=== PATIENT | female | born 1995 | race Caucasian/White ===

== ENCOUNTER 2022-08-17 14:12 | Emergency (ER) | payer BC, OTHER ==
[~2022-08-17] VITALS: Ht 165.1 cm; Wt 104.3 kg
--- NOTE | 2022-08-17 15:05 | ED GU-Female ---
General Chief Complaint: - Reproductive Stated Complaint: VAG BLEEDING 9 WKS PREG Nursing Triage Note: pt ambulatory to room. pt states she had a vaginal exam on saturday and started to have spotting on . pt reports spotting became heavier today and states she passed a clot the size of a "half dollar. pt reports she is 9 weeks and had her first OB appt two days ago, ultrasound confirmed , and heartbeat detected at 180. pt is concerned about clot that was passed today and would like checked out for this. pt reports light cramping yesterday and light "crampy/bloated" feeling today but states has not had intense pain History of Present Illness Date Seen by Provider: Aug 17, 2022 Time Seen by Provider: 15:05 Initial Comments Patient presents to the emergency department for vaginal bleeding that started yesterday but worse today. Was seen by OB on Saturday and had an ultrasound done. States that the baby heart rate was in the 180s. Has not heard results of her blood work yet. . Reports that she is O negative blood type. Reports on she noticed some vaginal spotting. Today she reports that she has noticed brighter red blood and is passing clots. Is having some cramping. Passed a blood clot prior to arrival that was about the size of a half dollar. Denies recent sexual relations. Timing/Duration: yesterday, getting worse Severity/Quality: mild, cramping Location: RLQ, suprapubic Radiation: none Activities at Onset: none Prior Genitourinary Problems: none Sexual [place] History: single partner Associated Symptoms: abdominal pain; No dysuria, No fever/chills, No loss of bladder control, No nausea/vomiting, No urinary frequency Allergies and Home Medications Allergies Coded Allergies: No Known Drug Allergies (Unverified , 08/17/22) Patient Home Medication List Home Medication List Reviewed: Yes Review of Systems Review of Systems Constitutional: No chills, No diaphoresis, No dizziness, No fever EENTM: no symptoms reported Respiratory: no symptoms reported Cardiovascular: no symptoms reported Gastrointestinal: RLQ, abdominal pain (RLQ); No constipation, No diarrhea, No heartburn, No nausea, No vomiting Genitourinary: discharge (vaginal bleeding); denies pain, denies urgency : Yes LMP: Jun 14, 2022 Musculoskeletal: no symptoms reported Skin: no symptoms reported All Other Systemes Reviewed Negative Unless Noted: Yes Past Dwguyff-Jradvi-Ahfobm Hx Patient Social History Tobacco Use?: No Use of E-Cig and/or Vaping dev: No Substance use?: No Alcohol Use?: Yes Alcohol Frequency: Once in a while Immunizations Up To Date Influenza Vaccine Up-to-Date: No; Not Current Family Medical History Reviewed Nursing Family Hx Physical Exam Vital Signs Vital Signs - First Documented 08/17/22 14:30 Temp 37.1 Pulse 81 Resp 20 B/P (MAP) 121/78 (92) Pulse Ox 98 Capillary Refill : Height, Weight, BMI Height: '" Weight: lbs. oz. kg; 38.00 BMI Method: General Appearance: WD/WN, no apparent distress Cardiovascular: regular rate, rhythm, no edema Respiratory: chest non-tender, lungs clear, normal breath sounds, no respiratory distress, no accessory muscle use Gastrointestinal: normal bowel sounds; No distended, No guarding, No rebound; tenderness (suprapubic) Neurologic/Psychiatric: alert, normal mood/affect, oriented x 3 Skin: normal color, warm/dry Progress/Results/Core Measures Suspected Sepsis SIRS Temperature: Pulse: 81 Respiratory Rate: 20 Laboratory Tests 08/17/22 15:50: White Blood Count 12.0H Blood Pressure 121 /78 Mean: 92 Laboratory Tests 08/17/22 15:50: Creatinine 0.74, Platelet Count 361, Total Bilirubin 0.3 Results/Orders Lab Results Laboratory Tests Test 08/17/22 15:37 08/17/22 15:50 Range/Units Urine Color YELLOW Urine Clarity CLOUDY Urine pH 5.5 5-9 Urine Specific [place] 1.020 1.016-1.022 Urine Protein 2+ H NEGATIVE Urine Glucose (UA) NEGATIVE NEGATIVE Urine Ketones NEGATIVE NEGATIVE Urine Nitrite NEGATIVE NEGATIVE Urine Bilirubin NEGATIVE NEGATIVE Urine Urobilinogen 0.2 < = 1.0 MG/DL Urine Leukocyte Esterase TRACE H NEGATIVE Urine RBC (Auto) 3+ H NEGATIVE Urine RBC TNTC H /HPF Urine WBC 0-2 /HPF Urine Crystals NONE /LPF Urine Bacteria FEW H /HPF Urine Casts NONE /LPF Urine Mucus NEGATIVE /LPF Urine Culture Indicated YES White Blood Count 12.0 H 4.3-11.0 10^3/uL Red Blood Count 3.75 L 3.80-5.11 10^6/uL Hemoglobin 11.0 L 11.5-16.0 g/dL Hematocrit 34 L 35-52 % Mean Corpuscular Volume 90 80-99 fL Mean Corpuscular Hemoglobin 29 25-34 pg Mean Corpuscular Hemoglobin Concent 33 32-36 g/dL Red Cell Distribution Width 13.1 10.0-14.5 % Platelet Count 361 130-400 10^3/uL Mean Platelet Volume 9.1 9.0-12.2 fL Immature Granulocyte % (Auto) 0 % Neutrophils (%) (Auto) 67 42-75 % Lymphocytes (%) (Auto) 25 12-44 % Monocytes (%) (Auto) 5 0-12 % Eosinophils (%) (Auto) 2 0-10 % Basophils (%) (Auto) 0 0-10 % Neutrophils # (Auto) 8.0 H 1.8-7.8 10^3/uL Lymphocytes # (Auto) 3.0 1.0-4.0 10^3/uL Monocytes # (Auto) 0.7 0.0-1.0 10^3/uL Eosinophils # (Auto) 0.2 0.0-0.3 10^3/uL Basophils # (Auto) 0.0 0.0-0.1 10^3/uL Immature Granulocyte # (Auto) 0.1 0.0-0.1 10^3/uL Sodium Level 139 135-145 MMOL/L Potassium Level 3.7 3.6-5.0 MMOL/L Chloride Level 105 98-107 MMOL/L Carbon Dioxide Level 23 21-32 MMOL/L Anion Gap 11 5-14 MMOL/L Blood Urea Nitrogen 8 7-18 MG/DL Creatinine 0.74 0.60-1.30 MG/DL Estimat Glomerular Filtration Rate 114 BUN/Creatinine Ratio 11 Glucose Level 88 70-105 MG/DL Calcium Level 9.1 8.5-10.1 MG/DL Corrected Calcium 8.9 8.5-10.1 MG/DL Total Bilirubin 0.3 0.1-1.0 MG/DL Aspartate Amino Transf (AST/SGOT) 17 5-34 U/L Alanine Aminotransferase (ALT/SGPT) 16 0-55 U/L Alkaline Phosphatase 76 40-136 U/L Total Protein 7.7 6.4-8.2 GM/DL Albumin 4.3 3.2-4.5 GM/DL Human Chorionic Gonadotropin, Quant 9398 H <5 MIU/ML My Orders Orders - PATTIERAMONMELANIA APRN Cbc With Automated Diff (08/17/22 15:13) Hcg,Quantitative (08/17/22 15:13) Abo Rh Type (08/17/22 15:13) Ed Iv/Invasive Line Start (08/17/22 15:13) Comprehensive Metabolic Panel (08/17/22 15:13) Ua Culture If Indicated (08/17/22 15:13) Ed Iv/Invasive Line Start (08/17/22 15:13) Ns Iv 1000 Ml (Sodium Chloride 0.9%) (08/17/22 15:15) Urine Culture (08/17/22 15:37) Us Ob<14 Wks Sngle W/Transvag (08/17/22 15:13) Rh Immune Globulin Rhophylac (08/17/22 17:07) Rhogam Administration (08/17/22 17:07) Vital Signs/I&O 08/17/22 14:30 Temp 37.1 Pulse 81 Resp 20 B/P (MAP) 121/78 (92) Pulse Ox 98 Capillary Refill : Blood Pressure Mean: 92 Progress Note : Progress Note Patient presents to the emergency room for some vaginal bleeding that she noticed today with some minor cramping. Had ultrasound done on Saturday and was told that she was around 7 weeks. States that according to her last period she should be about 9 weeks. Had labs drawn at that time. Reports that the baby had a heart beat at that time in the 180s. . Will obtain labs, blood type and ultrasound. She was offered Tylenol for pain and she declined at this time. 1700: Went to speak with patient in regards to lab and ultrasound results. She is O negative. Will need Rhogam. That will be ordered. Offered pain medication again for patient and she declined. Also offered to do pelvic exam at this time and she declined. Emotional support given to patient and . Questions answered. Will give Rhogam and then likely discharge home. Departure Impression Primary Impression: Miscarriage Disposition: 01 HOME, SELF-CARE Condition: Stable Departure-Patient Inst. Decision time for Depature: 17:18 Referrals: LYUBOV GARCIA MD (PCP) Primary Care Physician KAITLYN HIGUERA (Family) Primary Care Physician Patient Instructions: Miscarriage (DC) Add. Discharge Instructions: 1. Home and rest. 2. Push fluids. 3. Alternate Tylenol/Ibuprofen as needed for pain. 4. May use heating pad to lower abdomen as needed for pain or cramping. 5. Follow up with OB on Saturday. 6. Follow up with PCP as needed. 7. If you are bleeding through more then 2-3 pads per hour then you need to return to the ER or if the pain is out of control. 8. Return here if worse or concerns. All discharge instructions reviewed with patient and/or family. Voiced understanding. MELANIA MCKEON APRN Aug 17, 2022 15:05
[2022-08-17] MEDS ORDERED: NS IV 1000 ML 1,000 ML IV SCH (15:15)
[2022-08-17 15:51] LABS: BILIRUBIN,URINE NEGATIVE (NEGATIVE); CLARITY,URINE CLOUDY; COLOR,URINE YELLOW; GLUCOSE, URINE (UA) NEGATIVE (NEGATIVE); KETONES,URINE NEGATIVE (NEGATIVE); LEUKOCYTE ESTERASE ,URINE TRACE (NEGATIVE); NITRITE,URINE NEGATIVE (NEGATIVE); PH,URINE 5.5 (5-9); PROTEIN,URINE 2+ (NEGATIVE)
[2022-08-17 15:59] LABS: BASOPHILS % (AUTO) 0 % (0-10); EOSINOPHILS # (AUTO) 0.2 10^3/uL (0.0-0.3); EOSINOPHILS % (AUTO) 2 % (0-10); HEMATOCRIT 34 % (35-52); LYMPHOCYTES % (AUTO) 25 % (12-44); MEAN CORPUSCULAR HEMOGLOBIN 29 pg (25-34); MEAN CORPUSCULAR HGB CONC 33 g/dL (32-36); MEAN CORPUSCULAR VOLUME 90 fL (80-99); MEAN PLATELET VOLUME 9.1 fL (9.0-12.2); MONOCYTES # (AUTO) 0.7 10^3/uL (0.0-1.0); MONOCYTES % (AUTO) 5 % (0-12); NEUTROPHILS % (AUTO) 67 % (42-75); PLATELET COUNT 361 10^3/uL (130-400)
[2022-08-17 16:02] LABS: BACTERIA,URINE FEW /HPF; RBC,URINE TNTC /HPF; WBC,URINE 0-2 /HPF
[2022-08-17 16:09] LABS: ALBUMIN 4.3 GM/DL (3.2-4.5)
[2022-08-17 16:10] LABS: POTASSIUM 3.7 MMOL/L (3.6-5.0)
[2022-08-17 16:11] LABS: CALCIUM 9.1 MG/DL (8.5-10.1)
[2022-08-17 16:12] LABS: TOTAL PROTEIN 7.7 GM/DL (6.4-8.2)
[2022-08-17 16:14] LABS: BILIRUBIN,TOTAL 0.3 MG/DL (0.1-1.0)
[2022-08-17 16:16] LABS: CREATININE SERUM 0.74 MG/DL (0.60-1.30)
--- NOTE | 2022-08-17 16:45 | Diagnostic Imaging Report ---
INDICATION: Vaginal bleeding during . TECHNIQUE: Multiple real-time grayscale images were obtained of the gravid uterus, transabdominally and transvaginally. CORRELATION STUDY: None. FINDINGS: Uterus is 7.6 x 4.2 x 3.6 cm. There is an intrauterine gestational sac which has an estimated age 7 weeks 0 days. A pole is present with the crown-rump length, 1.8 cm for an estimated age 8 weeks 3 days. heart tones cannot be identified. No definitive abnormal perigestational fluid collection. Imaging of the maternal adnexa demonstrates a small amount of free fluid around the right ovary. Right ovary is 2.7 x 1.9 x 1.4 cm with left ovary 2.5 x 1.5 x 2.2 cm. IMPRESSION: 1. Findings consistent with intrauterine demise at approximately 7 weeks 5 days gestational age. Findings were relayed by the machine set up at the time of imaging. Dictated by: Dictated on workstation # [id number]
[2022-08-17 18:00] VITALS: BP 117/78
== END 2022-08-17 18:00 | disposition home or self-care (01) ==
LOC: ER 14:17
DX: O03.9 Complete or unspecified spontaneous abortion without complication (principal); Z28.310 Unvaccinated for COVID-19
CPT/HCPCS: 36415; 76801; 76817; 80053; 81000; 84702; 85025; 86900; 86901; 87077; 87088; 96372